=== PATIENT | female | born 1960 | race Hispanic/Latino ===

== ENCOUNTER 2016-09-16 05:17 | Inpatient (IN) | payer BC, OTHER ==
[2016-09-16] MEDS ORDERED: ZOFRAN ODT PO ONE (05:35)
[2016-09-16] MEDS ORDERED: ATIVAN IV ONE ×2 (12:30→13:02)
--- NOTE | 2016-09-16 12:35 | Emergency Department Report ---
HPI - General Chief Complaint: Nausea/Vomiting/Diarrhea Time Seen by Provider: 09/16/16 12:19 - HPI HPI: Room 16 The patient is a 56-year-old female presenting with a chief complaint alcohol withdrawal. The patient states since July 18 she's been drinking heavily and this includes vodka and tequila. The patient is unable to quantify the amount of alcohol she consumes daily. The patient states she was at [facility] for alcohol detox after quitting alcohol and began to have seizures. The patient is unable to tell me the last time she consumes alcohol. The patient states she feels shaky and nauseous now. The patient was sent from [facility] for medical clearance secondary to the seizures Location: [see above] Duration: [see above] Quality: "Shaky" Severity: Severe Modifying factors: [see above] Context: [see above] Mode of transportation: [not driving] ED Past Medical Hx - Past Medical History Previous Medical History?: No Hx Seizures: Yes Hx Psychiatric Treatment: Yes (h/o cutting) - Surgical History Past Surgical History?: No Additional Surgical History: mole removed,ankle surgery - Family History Family history: no significant - Social History Smoking Status: Current Every Day Smoker Substance Use Type: Alcohol ED Review of Systems ROS: Stated complaint: NAUSEA AND VOMITING Other details as noted in HPI Comment: All other systems reviewed and negative Constitutional: denies: chills, fever Eyes: denies: eye pain, eye discharge, vision change ENT: denies: ear pain, throat pain Respiratory: denies: cough, shortness of breath, wheezing Cardiovascular: denies: chest pain, palpitations Endocrine: no symptoms reported Gastrointestinal: nausea Genitourinary: denies: urgency, dysuria, discharge Musculoskeletal: denies: back pain, joint swelling, arthralgia Skin: denies: rash, lesions Neurological: other (tremulousness, seizure) Psychiatric: denies: anxiety, depression Hematological/Lymphatic: denies: easy bleeding, easy bruising Physical Exam - Physical Exam Vital Signs: Vital Signs 09/16/16 09/16/16 05:31 12:25 Temperature 98.6 F Pulse Rate 110 H Respiratory 18 18 Rate Blood Pressure 127/90 [Right] O2 Sat by Pulse 97 99 Oximetry Physical Exam: GENERAL: The patient is well-developed well-nourished female lying on stretcher appearing to be in moderate discomfort HEENT: Normocephalic. Atraumatic. Extraocular motions are intact. Patient has moist mucous membranes. NECK: Supple. Trachea midline CHEST/LUNGS: Clear to auscultation. There is no respiratory distress noted. HEART/CARDIOVASCULAR: Regular. There is tachycardia. There is no gallop rub or murmur. ABDOMEN: Abdomen is soft, nontender. Patient has normal bowel sounds. There is no abdominal distention. SKIN: There is no rash. There is no edema. There is no diaphoresis. NEURO: The patient is awake, alert, and oriented. The patient is cooperative. The patient has no focal neurologic deficits. The patient has normal speech. Cranial nerves II through XII grossly intact, no drift. There is moderate tremulousness noted with bilateral upper extremities MUSCULOSKELETAL: There is no evidence of acute injury. ED Course Vital Signs 09/16/16 09/16/16 05:31 12:25 Temperature 98.6 F Pulse Rate 110 H Respiratory 18 18 Rate Blood Pressure 127/90 [Right] O2 Sat by Pulse 97 99 Oximetry ED Medical Decision Making - Lab Data Result diagrams: 09/16/16 Unknown 09/16/16 Unknown Laboratory Tests 09/16/16 09/16/16 09/16/16 Unknown Unknown Unknown WBC 5.5 RBC 3.98 Hgb 14.2 Hct 41.3 MCV 104 H MCH 36 H MCHC 34 RDW 14.3 Plt Count 111 L Lymph % (Auto) 51.6 H [place] % (Auto) 6.2 Eos % (Auto) 0.6 Baso % (Auto) 1.0 Lymph # 2.8 [place] # 0.3 Eos # 0.0 Baso # 0.1 Seg Neutrophils % 40.6 Seg Neutrophils # 2.2 Sodium 142 Potassium 3.6 Chloride 98.2 Carbon Dioxide 22 Anion Gap 25 BUN 10 Creatinine 0.6 L Estimated GFR > 60 BUN/Creatinine Ratio 16.66 Glucose 92 Calcium 8.9 Total Bilirubin 0.5 AST 38 ALT 19 Alkaline Phosphatase 64 Total Protein 7.7 Albumin 4.6 Albumin/Globulin Ratio 1.5 Plasma/Serum Alcohol 0.24 H - Differential Diagnosis alcohol withdrawal Critical care attestation.: If time is entered above; I have spent that time in minutes in the direct care of this critically ill patient, excluding procedure time. ED Disposition Clinical Impression: Alcohol withdrawal, Alcoholism Disposition: OP ADMITTED IP TO THIS HOSP Is pt being admited?: Yes Does the pt Need Aspirin: Yes Condition: Fair Referrals: PRIMARY CARE,MD [Primary Care Provider] - 3-5 Days Time of Disposition: 13:50 (hospitalist paged)
[2016-09-16] MEDS ORDERED: ZOFRAN ONE ×2 (12:43→12:46)
[2016-09-16 12:52] LABS: Eosinophils % (Auto) 0.6 % (0.0-4.3); Hematocrit 41.3 % (30.3-42.9); Hemoglobin 14.2 gm/dl (10.1-14.3); Mean Corpuscular HGB Conc 34 % (30-34); Mean Corpuscular Hemoglobin 36 pg (28-32); Mean Corpuscular Volume 104 fl (79-97); Platelet Count 111 K/mm3 (140-440); Red Blood Count 3.98 M/mm3 (3.65-5.03); Red Cell Distribution Width 14.3 % (13.2-15.2); White Blood Count 5.5 K/mm3 (4.5-11.0)
[2016-09-16] MEDS ORDERED: ZOFRAN IV ONE (12:55)
[2016-09-16] MEDS ORDERED: VITAMIN B-1 100 MG, FOLVITE 1 MG, INFUVITE 10 ML, MAGNESIUM SULFATE 2 GM in NACL 0.9% 1... IV ONE (13:00)
--- NOTE | 2016-09-16 13:00 | Admit Criteria Form ---
Admission Criteria Documentation: ALCOHOL AND PSYCHOACTIVE SUBSTANCE WITHDRAWAL Clinical Indications for Inpatient Care (Place ' X' for any and all applicable criteria): Ongoing inpatient care may be indicated for substance withdrawal[B][C] with ANY ONE of the following(1)(2)(3)(4)(21): [ ]I. Delirium due to alcohol or sedative[D] withdrawal is present. [ X]II. Marked signs of withdrawal are present as indicated by ANY ONE of the following(15)(22)(23) [ ]a) Heart rate greater than 120 beats per minute is present. [ ]b) Severe vomiting is present (eg, precludes maintenance of oral hydration). [X ]c) Grossly visible tremor is present. [ ]d) Profuse perspiration is present. [ ]e) Temperature greater than 101 degrees F (38.3 degrees C) is present. [ ]f) Other signs of severe withdrawal are present (eg, Altered mental status ) [ ]g) Severe withdrawal identified by standardized assessment score[A] [X ]III. Signs of withdrawal that require continued inpatient treatment as indicated by ANY ONE of the following(15)(22)(23): [ ]a) Inadequate response to pharmacotherapy (eg, benzodiazepines) [X ]b) Outpatient or lower level of care is not feasible or appropriate (eg, unavailable or inappropriate to patient condition or treatment history). [ ]IV. Withdrawal signs with high-risk indicator are present as manifested by ALL of the following[A](15)(22)(23) [ ]a) Signs of withdrawal are present as indicated by ANY ONE of the following: [ ]i. Tachycardia is present. [ ]ii. Nausea or vomiting is present. [ ]iii. Tremor is present. [ ]iv. Increased perspiration is present. [ ]v. Other signs of withdrawal are present. [ ]vi. Withdrawal identified by standardized assessment score [A] [ ]b) Elevated risk due to historical or comorbid factor is present as indicated by ANY ONE of the following: [ ]i. History of delirium due to withdrawal is present. [ ]ii. History of seizures due to withdrawal is present.[E] [ ]iii. Intrinsic seizure disorder (epilepsy) is present. [ ]iv. Patient is . [ ]v. Other significant medical history (eg, severe cardiac disease) is present, which is assessed to be at risk for destabilization due to withdrawal. [ ]V. Serious electrolyte abnormalities (eg, hyponatremia, hypokalemia, hypophosphatemia) requiring correction performable only in inpatient setting(6)(25) [ ]. Severe hypoglycemia requiring glucose infusions performable only in inpatient setting(6) [ ]VII. Drug toxicity or instability, such as Altered mental status, respiratory depression, or arrhythmias, that requires inpatient care [ ]VIII. Danger judged unmanageable at lower level of care because of ANY ONE of the following [ ]a) Danger to self [ ]b) Danger to others [ ]c) Grave disability (eg, inability to perform self-care necessary at lower level of care) The original [facility] Care [facility] content created by [facility] has been revised. The portions of the content which have been revised are identified through the use of italic text or in bold. [facility] Care [facility] has neither reviewed nor approved the modified material. All other unmodified content is copyright [facility]. Please see references footnoted in the original [facility] Care[facility] edition 2016 Admission Criteria Met: Yes
[2016-09-16] MEDS ORDERED: ATIVAN IV PRN ×2 (13:03)
[2016-09-16 13:15] LABS: Alanine Aminotransferase 19 units/L (7-56); Albumin 4.6 g/dL (3.9-5); Albumin/Globulin Ratio 1.5 %; Alkaline Phosphatase 64 units/L (35-129); Anion Gap 25 mmol/L; BUN/Creatinine Ratio 16.66; Bilirubin,Total 0.5 mg/dL (0.1-1.2); Blood Urea Nitrogen 10 mg/dL (7-17); Calcium 8.9 mg/dL (8.4-10.2); Carbon Dioxide 22 mmol/L (22-30); Chloride 98.2 mmol/L (98-107); Glucose 92 mg/dL (65-100); Potassium 3.6 mmol/L (3.6-5.0); Sodium 142 mmol/L (137-145); Total Protein 7.7 g/dL (6.3-8.2)
--- NOTE | 2016-09-16 15:00 | History and Physical Report ---
History of Present Illness Date of examination: 09/16/16 Date of admission: 09/16/16 13:56 Chief complaint: alcohol withdrawal History of present illness: History is taken from patient's notes from the ER, patient is unable to give a history as she is partially sedated after given Ativan in the ER As per the ER records patient was sent in from [facility] for medical clearance. Patient apparently presented there for alcohol detox and apparently had seizures. She was in the emergency room she was noted to be tachycardic and thought to be having alcohol withdrawal. She was given IV Ativan. Apparently patient has been drinking heavily since July 18 and her alcohol intake including vodka and tequila. No other history is available at this time as patient is unable to give a history. Past History Past Medical History: other (unable to obtain; alcohol abuse) Past Surgical History: Other (unable to obtain) Social history: alcohol abuse, full code, other (unable to obtain any other history as she is partially sedated ) Family history: other (unble obtain) Medications and Allergies Allergies Allergy/AdvReac Type Severity Reaction Status Date / Time No Known Allergies Allergy Verified 09/16/16 05:24 Active Meds: Active Medications Thiamine HCl 100 mg/ Folic Acid 1 mg/ Multivitamins/Minerals 10 ml/ Magnesium Sulfate 2 gm/ Sodium Chloride 1,015.2 mls @ 250 mls/hr IV ONCE.ED ONE Stop: 09/16/16 17:03 Last Admin: 09/16/16 14:54 Dose: 250 mls/hr Lorazepam (Ativan) 2 mg IV Q1HR PRN PRN Reason: CIWA-Ar 8-15 Lorazepam (Ativan) 4 mg IV Q1HR PRN PRN Reason: CIWA-Ar 16-25 Lorazepam (Ativan) 4 mg IV Q15MIN PRN PRN Reason: CIWA-Ar >25 Review of Systems ROS unobtainable: due to mental status Exam - Constitutional Vitals: Temp Pulse Resp BP Pulse Ox 98.6 F 103 H 15 95/59 94 09/16/16 05:31 09/16/16 14:00 09/16/16 14:00 09/16/16 14:00 09/16/16 14:00 General appearance: Present: no acute distress, well-nourished, other (swells of alcohol) - EENT Eyes: Present: PERRL, EOM intact. Absent: scleral icterus, conjunctival injection ENT: hearing intact, no clear oral mucosa (dry), no oropharyngeal erythema, no poor dentition - Neck Neck: Present: supple, normal ROM. Absent: enlarged thyroid, masses or JVD - Respiratory Respiratory effort: normal Respiratory: negative: diminished, rales, rhonchi, wheezing - Cardiovascular Rhythm: regular Heart Sounds: Present: S1 & S2. Absent: gallop - Extremities Extremities: no ischemia, pulses intact, pulses symmetrical, No edema Peripheral Pulses: within normal limits - Abdominal General gastrointestinal: Present: soft, non-tender, non-distended Female genitourinary: Present: deferred - Rectal Rectal Exam: deferred - Integumentary Integumentary: Present: clear - Musculoskeletal Musculoskeletal: strength equal bilaterally - Psychiatric Psychiatric: other (unable to assess as she is partially sedated) - Neurologic Neurologic: no focal deficits (no obvious deficits ), moves all extremities, other (unable to assess fully as she is partially sedated; opens eyes to tactile stimulus and mumbles her name) Results - Labs CBC & Chem 7: 09/16/16 Unknown 09/16/16 Unknown Labs: Abnormal lab results 09/16/16 09/16/16 09/16/16 Range/Units Unknown Unknown Unknown MCV 104 H (79-97) fl MCH 36 H (28-32) pg Plt Count 111 L (140-440) K/mm3 Lymph % (Auto) 51.6 H (13.4-35.0) % Creatinine 0.6 L (0.7-1.2) mg/dL Plasma/Serum Alcohol 0.24 H (0-0.07) gm% Assessment and Plan 1. Alcohol withdrawal with alcohol intoxication-admit as an inpatient as more than 2% required for treatment. Continue banana bag. Continue CIWA protocol. Seizure precaution. We'll consult psych. Monitor electrolytes 2. Macrocytosis-most likely due to alcohol. We'll check B12 and folate levels 3. Thrombocytopenia-secondary to bone marrow suppression from alcohol abuse-we' ll continue to monitor 4. DVT prophylaxis-SCD; will avoid chemical prophylaxis now in view of thrombocytopenia
[2016-09-16 15:03] LABS: Basophils % (Auto) 1.2 % (0.0-1.8); Eosinophils % (Auto) 0.4 % (0.0-4.3); Hematocrit 41.4 % (30.3-42.9); Hemoglobin 13.8 gm/dl (10.1-14.3); Mean Corpuscular HGB Conc 33 % (30-34); Mean Corpuscular Hemoglobin 35 pg (28-32); Mean Corpuscular Volume 105 fl (79-97); Platelet Count 102 K/mm3 (140-440); Red Blood Count 3.94 M/mm3 (3.65-5.03); Red Cell Distribution Width 14.1 % (13.2-15.2); White Blood Count 4.4 K/mm3 (4.5-11.0)
[2016-09-16] MEDS ORDERED: LIBRIUM PO PRN (15:09)
[2016-09-16 15:19] LABS: Alanine Aminotransferase 18 units/L (7-56); Albumin 4.3 g/dL (3.9-5); Albumin/Globulin Ratio 1.5 %; Alkaline Phosphatase 59 units/L (35-129); Anion Gap 25 mmol/L; BUN/Creatinine Ratio 16.66; Bilirubin,Total 0.6 mg/dL (0.1-1.2); Blood Urea Nitrogen 10 mg/dL (7-17); Calcium 8.7 mg/dL (8.4-10.2); Carbon Dioxide 22 mmol/L (22-30); Chloride 100.9 mmol/L (98-107); Glucose 87 mg/dL (65-100); Potassium 3.5 mmol/L (3.6-5.0); Sodium 144 mmol/L (137-145); Total Protein 7.2 g/dL (6.3-8.2)
[2016-09-16 15:26] LABS: Magnesium 1.7 mg/dL (1.7-2.3); Phosphorous 4.3 mg/dL (2.5-4.5)
[2016-09-16] MEDS: ATIVAN IV PRN ×2 (17:24→18:50)
[2016-09-16 17:32] LABS: Urine Drugs of Abuse Note Disclamer
[2016-09-16 17:46] LABS: Bacteria,Urine 1+ /HPF (Negative); Bilirubin,Urine NEG (Negative); Blood,Urine NEG (Negative); Ketones,Urine NEG (Negative); Leukocyte Esterase,Urine TR (Negative); Mucus,Urine 3+ /HPF; Nitrite,Urine NEG (Negative); Urobilinogen,Urine < 2.0 mg/dL (<2.0)
[2016-09-16] MEDS ORDERED: REGLAN IV PRN (21:34)
[2016-09-16] MEDS ORDERED: TYLENOL PO PRN (21:34)
[2016-09-16] MEDS ORDERED: 1: FOLVITE 1 MG, INFUVITE 10 ML, VITAMIN B-1 100 MG in NACL 0.9% 1000 ML 988.8 ML 2: NA IV SCH (21:34)
[2016-09-16] MEDS ORDERED: ZOFRAN IV PRN (21:34)
[2016-09-16] MEDS: LIBRIUM PO SCH (22:00)
[2016-09-17] MEDS: ATIVAN IV PRN ×3 (00:20→21:17)
[2016-09-17] MEDS: NACL 0.9% 1000 ML 1,000 ML IV SCH (00:28)
[2016-09-17] MEDS: LIBRIUM PO SCH ×3 (06:08→21:09)
[2016-09-17 07:51] LABS: BUN/Creatinine Ratio 18.33; Blood Urea Nitrogen 11 mg/dL (7-17); Calcium 8.8 mg/dL (8.4-10.2); Carbon Dioxide 27 mmol/L (22-30); Chloride 98.5 mmol/L (98-107); Glucose 95 mg/dL (65-100); Potassium 3.5 mmol/L (3.6-5.0); Sodium 139 mmol/L (137-145)
[2016-09-17 07:53] LABS: Anion Gap 17 mmol/L
[2016-09-17] MEDS: FOLVITE IV SCH (16:12)
[2016-09-17] MEDS: INFUVITE IV SCH (16:12)
[2016-09-17] MEDS: VITAMIN B1 IV SCH (16:12)
[2016-09-17] MEDS: NACL 0.9% IV SCH (16:12)
--- NOTE | 2016-09-17 17:35 | Progress Note ---
Assessment and Plan 1. Alcohol withdrawal with alcohol intoxication- On CIWA protocal with Ativan. 2. Hypokalemia: Will supplement -most likely due to alcohol. We'll check B12 and folate levels 3. Thrombocytopenia-secondary to bone marrow suppression from alcohol abuse- Trend Platelet 4. DVT prophylaxis-SCD; will avoid chemical prophylaxis now in view of thrombocytopenia Subjective Date of service: 09/17/16 Principal diagnosis: alcohol abuse and alcohol withdrawal symptoms Interval history: Still very tremulous. Agitated. However, can answer simple questions Objective - Constitutional Vitals: Vital Signs - 12hr 09/17/16 09/17/16 07:40 15:00 Temperature 98.3 F Pulse Rate [ 99 H 97 H Brachial] Respiratory 18 20 Rate Blood Pressure 160/107 156/97 [Left Arm] O2 Sat by Pulse 97 Oximetry General appearance: Present: no acute distress, well-nourished - EENT Eyes: PERRL, EOM intact ENT: hearing intact, clear oral mucosa Ears: bilateral: normal - Neck Neck: supple, normal ROM - Respiratory Respiratory effort: normal Respiratory: bilateral: CTA - Breasts Breasts: normal - Cardiovascular Rhythm: regular Heart Sounds: Present: S1 & S2. Absent: gallop, rub Extremities: pulses intact, No edema, normal color, Full ROM - Gastrointestinal General gastrointestinal: Present: soft, non-tender, non-distended, normal bowel sounds - Genitourinary Female genitourinary: normal - Integumentary Integumentary: clear, warm, dry - Musculoskeletal Musculoskeletal: 1, strength equal bilaterally - Neurologic Neurologic: moves all extremities, other (agitated and tremulous) - Psychiatric Psychiatric: memory intact, appropriate mood/affect, intact judgment & insight - Labs CBC & Chem 7: 09/16/16 Unknown 09/17/16 07:16 Labs: Abnormal lab results 09/17/16 Range/Units 07:16 Potassium 3.5 L (3.6-5.0) mmol/L Creatinine 0.6 L (0.7-1.2) mg/dL
[2016-09-18] MEDS: NACL 0.9% 1000 ML 1,000 ML IV SCH ×2 (00:30→14:17)
[2016-09-18] MEDS: LIBRIUM PO SCH ×2 (06:22→13:55)
[2016-09-18 09:47] LABS: Alanine Aminotransferase 15 units/L (7-56); Albumin 4.1 g/dL (3.9-5); Albumin/Globulin Ratio 1.5 %; Alkaline Phosphatase 58 units/L (35-129); Anion Gap 19 mmol/L; Bilirubin,Total 1.1 mg/dL (0.1-1.2); Blood Urea Nitrogen 6 mg/dL (7-17); Calcium 8.8 mg/dL (8.4-10.2); Carbon Dioxide 23 mmol/L (22-30); Chloride 102.2 mmol/L (98-107); Glucose 106 mg/dL (65-100); Potassium 3.1 mmol/L (3.6-5.0); Sodium 141 mmol/L (137-145); Total Protein 6.9 g/dL (6.3-8.2)
[2016-09-18] MEDS: ATIVAN IV PRN (14:17)
[2016-09-18] MEDS: VITAMIN B1 IV SCH (15:09)
[2016-09-18] MEDS: FOLVITE IV SCH (15:09)
[2016-09-18] MEDS: INFUVITE IV SCH (15:09)
[2016-09-18] MEDS: NACL 0.9% IV SCH (15:09)
--- NOTE | 2016-09-18 15:51 | Discharge Summary ---
Providers - Providers Date of Admission: 09/16/16 13:56 Date of discharge: 09/18/16 Attending physician: LIZZY REEVES 09/16/16 21:34 Consult to Mental Health [CONS] Routine Reason For Exam: alcohol abuse Place consult to:: psyche Notified:: yes Phone number called:: [phone] Was contact made?: Yes If yes, spoke with:: Berenice Time called:: 22:10 Primary care physician: [employer] ATTENDANT Hospitalization Condition: Stable Disposition: DC/TX PSY HOSP/PSY UNIT Time spent for discharge: 35 min Exam - Constitutional Vitals: Temp Pulse Resp BP Pulse Ox 98 F 104 H 18 133/97 98 09/18/16 08:00 09/18/16 08:00 09/18/16 08:00 09/18/16 08:00 09/18/16 08:00 Plan Activity: advance as tolerated Diet: low cholesterol, low salt Additional Instructions: Care will be assumed by [facility] facility physician. Follow up with: VICTORIA DOS SANTOS MD [Primary Care Provider] - 3-5 Days
[2016-09-18 16:32] VITALS: BP 137/92
== END 2016-09-18 17:50 | DRG 897 ==
LOC: ED 05:17 → 4A 13:56 → 3A 20:06
PROVIDERS: ADMIT Hospitalist; ATTEND Internal Medicine
DX: F10.239 Alcohol dependence with withdrawal, unspecified (principal); F10.229 Alcohol dependence with intoxication, unspecified; D75.89 Other specified diseases of blood and blood-forming organs; D69.6 Thrombocytopenia, unspecified; E87.6 Hypokalemia
CPT/HCPCS: 36415; 80048; 80053; 80307; 80320; 81001; 82607; 82747; 82962; 83735; 84100; 85025; 96365; 96366; 96375; G0480; J2060; J2405; J3411; J3475; J7030; Q0162